=== PATIENT | male | born 1970 | race Caucasian/White ===

== ENCOUNTER 2021-04-13 10:39 | Emergency (ER) | payer BC ==
[~2021-04-13] VITALS: Ht 180.3 cm; Wt 117.9 kg
[~2021-04-13 10:39] MED LIST: IBUP-1970; PROM25TA15
[2021-04-13 10:45] VITALS: BP_SYST 160
--- NOTE | 2021-04-13 10:45 | NUR ---
pt. bib with concerns of rashy area on left leg, started last with small red bump and grew to 3 X 3" red, raised, blistery rash denies pain, 2 days later another one appeared about 1.5 X 1.5 also on left lower leg and pt. has 2 small red dots on top of left foot where he thinks another one is forming. Pt. has no idea of cause
--- NOTE | 2021-04-13 10:45 | NUR ---
Patient to ER bed 3 for evaluation. Side rails up. Assumed care.
--- NOTE | 2021-04-13 10:55 | NUR ---
ER at bedside examining patient.
--- NOTE | 2021-04-13 11:37 | NUR ---
radiology at bedside for xray
[2021-04-13] MEDS ORDERED: PRED20TA PO (13:03)
[2021-04-13] MEDS ORDERED: HYDC1% TP (13:03)
[2021-04-13 13:07] VITALS: BP_SYST 172
--- NOTE | 2021-04-13 13:08 | NUR ---
Patient given written and verbal discharge instructions and verbalizes understanding. DR. Redd discussed with patient the results and treatment provided. Patient in stable condition. ID arm band removed. Rx of Hydrocortisone cream and Prednisone given. Patient educated on pain management and to follow up with PMD. Pain Scale 0. Opportunity for questions provided and answered. Medication side effect fact sheet provided.
== END 2021-04-13 13:08 | disposition home or self-care (01) ==
LOC: SED 10:39
DX: L30.9 Dermatitis, unspecified (principal); M25.521 Pain in right elbow; Z79.899 Other long term (current) drug therapy
CPT/HCPCS: 99283

== ENCOUNTER 2023-08-12 05:20 | Emergency (ER) | payer BC, OTHER ==
[~2023-08-12] VITALS: Ht 180.3 cm; Wt 106.6 kg
[~2023-08-12 05:20] MED LIST changes: +HYDC1% TP; +PRED20TA PO
[2023-08-12 05:45] VITALS: BP_SYST 153; PULSE 69; RESP 13; TEMP 97.3; O2SAT 96
[2023-08-12 06:39] LABS: BASOPHILS % (AUTO) 0.6 % (0.0-2.0); EOSINOPHILS # (AUTO) 0.1 K/uL (0.0-0.4); EOSINOPHILS % (AUTO) 2.4 % (0.0-4.0); HEMATOCRIT 44.8 % (36-54); HEMOGLOBIN 15.4 g/dL (14.0-18.0); LYMPHOCYTES # (AUTO) 1.2 K/uL (1.0-5.5); LYMPHOCYTES % (AUTO) 24.5 % (20.5-51.5); MEAN CORPUSCULAR HEMOGLOBIN 33 pg (27-31); MEAN CORPUSCULAR HGB CONC 34 % (32-36); MEAN CORPUSCULAR VOLUME 95 fL (79.0-98.0); MONOCYTES # (AUTO) 0.5 K/uL (0.0-1.0); MONOCYTES % (AUTO) 10.3 % (1.7-9.3); NEUTROPHILS # (AUTO) 3.1 K/uL (1.8-7.7); NEUTROPHILS % (AUTO) 62.2 % (40.0-70.0); PLATELET COUNT (AUTO) 213 K/uL (130-430); RED BLOOD CELL COUNT(AUTO) 4.73 MIL/uL (4.2-6.2); RED CELL DISTRIBUTION WIDTH 13.1 % (9.0-15.0)
[2023-08-12] MEDS ORDERED: iohexoL 350 mgI/mL, 100 ML INFUS..BTL IV ONE (06:40)
[2023-08-12 07:01] LABS: ANION GAP 10 (5-15); CALCIUM 8.5 mg/dL (8.4-11.0); CARBON DIOXIDE 25 mmol/L (23-29); CHLORIDE 106 mmol/L (98-107); CREATININE 0.91 mg/dL (0.55-1.30); GFR AFRICAN AMERICAN 112 mL/min (>90); GFR NON AFRICAN-AMERICAN 93 mL/min (>90); GLUCOSE 135 mg/dL (74-106); POTASSIUM 3.4 mmol/L (3.5-5.1); SODIUM SERUM 141 mmol/L (136-145); UREA NITROGEN, BLOOD 14 mg/dL (8-21)
[2023-08-12 07:11] LABS: PROTHROMBIN TIME 10.7 SECS (9.5-12.5)
[2023-08-12] MEDS: NACL 0.9% 1,000 ML IV ONE (07:17)
[2023-08-12] MEDS: MECLIZINE HCL 25 MG TABLET (ANITVERT) PO ONE (07:17)
[2023-08-12] MEDS: POTASSIUM CHLORIDE 20 MEQ/PKT PACKET PO ONE (07:43)
[2023-08-12 08:08] VITALS: BP_SYST 138; PULSE 69; RESP 16; TEMP 97.4; O2SAT 98
== END 2023-08-12 08:08 | disposition home or self-care (01) ==
LOC: SED 05:20
DX: R55 Syncope and collapse (principal); R42 Dizziness and giddiness; I10 Essential (primary) hypertension; Z79.899 Other long term (current) drug therapy
CPT/HCPCS: 99285; 96360; 71275; 80048; 83735; 84100; 85025; 85379; 85610; 85730; 84484; 36415; 93005; 82948; Q9967; J7030; J8597